=== PATIENT | male | born 1945 | race Hispanic/Latino ===

== ENCOUNTER 2017-08-10 09:18 | Inpatient (IN) | payer MEDICARE, OTHER ==
--- NOTE | 2017-08-10 10:19 | ED PDOC ---
Arrival/HPI - General Chief Complaint: Dizziness/Lightheaded Time Seen by Provider: 08/10/17 09:55 Historian: Patient, Spouse - History of Present Illness Narrative History of Present Illness (Text): 08/10/17 10:10 pt p/w + 5 days onset of intermittent "off-balanced" sensation; pt states 5 days ago when it first started, the symptoms only lasted for few min and pt continue to go about his daily chores; pt states yesterday upon awakening, "lightheadedness/off-balanced" sensation continued and lasted into today, prompted him to come to ED for further eval; pt states + at times having to hold onto bender when ambulating; pt states no fever/chills/sweats, no slurr speech, no vision changes, no neck pain, + mild occipital headache, no cp/sob/ palpitations, no abd pain, no n/v, no numbness/tingling, no arm/leg weakness, no rashes, no fall/trauma/sick contact, no traveling clerk denied other complaints pt has not seen PCP for awhile pcp: Dr Hicks pt is right hand dominate Time/Duration: < week (5 days) Symptom Onset: Sudden Symptom Course: Unchanged, Worsening Activities at Onset: Other (changing position worsens symptoms) Context: Home Past Medical History - Provider Review Nursing Documentation Reviewed: Yes - Travel History Have you recently traveled outside [place] w/in the past 3 mons?: No - Past History Past History: No Previous - Infectious Disease Hx of Infectious Diseases: None - HEENT Hx HEENT Disorder: Yes Hx Cataracts: Yes - Psychiatric Hx Psychophysiologic Disorder: No Hx Substance Use: No - Surgical History Hx Appendectomy: Yes Hx Cataract Extraction: Yes Family/Social History - Physician Review Nursing Documentation Reviewed: Yes Family/Social History: No Known Family HX Smoking Status: Current Some Days Smoker Hx Alcohol Use: No Hx Substance Use: No Hx Substance Use Treatment: No Allergies/Home Meds Allergies/Adverse Reactions: Allergies No Known Allergies Allergy (Verified 08/10/17 09:31) Home Medications: Home Meds Medication Instructions Recorded Confirmed Aspirin [Aspirin Chewable] 81 mg PO DAILY 08/10/17 08/10/17 Review of Systems - Review of Systems Constitutional: Normal Eyes: Normal ENT: Normal Respiratory: Normal Cardiovascular: Normal Gastrointestinal: Normal Genitourinary Male: Normal Musculoskeletal: Normal Skin: Normal Neurological: Headache, Dizziness, Disequilibrium Endocrine: Normal Hemo/Lymphatic: Normal Psychiatric: Normal Physical Exam Vital Signs Reviewed: Yes Vital Signs Temp Pulse Resp BP Pulse Ox 08/10/17 12:20 61 179/89 H 08/10/17 11:47 57 L 18 179/89 H 98 08/10/17 10:07 64 18 166/89 H 98 08/10/17 09:32 97.9 F 70 16 176/77 H 96 Temperature: Afebrile Blood Pressure: Normal Pulse: Regular Respiratory Rate: Normal Appearance: Positive for: Well-Appearing, Uncomfortable, Other (alert/awake, GCS = 15, oriented x 3 ) Pain Distress: None Mental Status: Positive for: Alert and Oriented X 3 - Systems Exam Head: Present: Atraumatic, Normocephalic Pupils: Present: PERRL Medical Decision Making ED Course and Treatment: 08/10/17 10:17 Impression: lightheadedness/off balance i have consider all the differential diagnosis regarding pt's chief medical complaints/clinical findings, including but are not limited to: lightheadedness/ off balance A/P: r/o basiliar stroke - labs - iv - xray - ct - observe - supportive care 08/10/17 12:05 pt felt some improvement, but still felt off balanced pt is made [place] of his medical results agrees with admission Dr Buchanan, pt's covering PCP, made aware, agrees with admission, would like to consult Dr Mcnair (neurology) Re-evaluation Time: 12:05 Reassessment Condition: Improving,but remains with symptoms - Critical Care Critical Care Minutes: 30 minutes Critical Care Time: Excluding Proc Time Narrative Critical Care (Text): 08/10/17 12:54 critical care time: 30min, excluding procedure time, excluding time teaching residents/students/mid-level providers; including initial eval/diagnosis, diagnostic interpretation, re-eval, consultations, final disposition - Lab Interpretations Lab Results: 08/10/17 10:28 08/10/17 11:10 Lab Results 08/10/17 11:30: Urine Color Yellow, Urine Appearance Clear, Urine pH 6.0, Ur Specific [place] 1.025, Urine Protein Negative, Urine Glucose (UA) Negative, Urine Ketones Negative, Urine Blood Negative, Urine Nitrate Negative, Urine Bilirubin Negative, Urine Urobilinogen 0.2, Ur Leukocyte Esterase Negative 08/10/17 11:10: TSH 3rd Generation 1.28 08/10/17 11:10: Sodium 142, Potassium 4.0, Chloride 112 H, Carbon Dioxide 21, Anion Gap 13, BUN 23 H, Creatinine 1.1, Est GFR ( Amer) > 60, Est GFR ( Non-Af Amer) > 60, Random Glucose 101, Calcium 9.3, Total Bilirubin 0.3, AST 35 , ALT 77 H, Alkaline Phosphatase 46, Troponin I < 0.01, Total Protein 6.3, Albumin 3.5, Globulin 2.8, Albumin/Globulin Ratio 1.2 08/10/17 10:28: PT 11.4, INR 0.99, APTT 25.1 08/10/17 10:28: WBC 8.2, RBC 4.65, Hgb 15.0, Hct 43.4, MCV 93.3, MCH 32.3, MCHC 34.6, RDW 13.1, Plt Count 243, MPV 11.4 H, Gran % 55.0, Lymph % (Auto) 31.1, [place] % (Auto) 10.3 H, Eos % (Auto) 3.2, Baso % (Auto) 0.4, Gran # 4.50, Lymph # (Auto) 2.5, [place] # (Auto) 0.8 H, Eos # (Auto) 0.3, Baso # (Auto) 0.03 I have reviewed the lab results: Yes Interpretation: All labs normal - RAD Interpretation Narrative RAD Interpretations (Text): 08/10/17 12:07 PROCEDURE: CT HEAD WITHOUT CONTRAST. HISTORY: persistent off balance COMPARISON: None available. TECHNIQUE: Axial computed tomography images were obtained through the head/brain without intravenous contrast. Radiation dose: Total exam DLP = 889 mGy-cm. This CT exam was performed using one or more of the following dose reduction techniques: Automated exposure control, adjustment of the mA and/or kV according to patient size, and/or use of iterative reconstruction technique. FINDINGS: HEMORRHAGE: No intracranial hemorrhage. BRAIN: No mass effect or edema. No atrophy or chronic microvascular ischemic changes. VENTRICLES: Unremarkable. No hydrocephalus. CALVARIUM: Unremarkable. PARANASAL SINUSES: Unremarkable as visualized. No significant inflammatory changes. MASTOID AIR CELLS: Unremarkable as visualized. No inflammatory changes. OTHER FINDINGS: None. IMPRESSION: No acute intracranial findings CXR - NAD Radiology Orders: 08/10/17 10:06 HEAD W/O CONTRAST [CT] Stat 08/10/17 10:07 CHEST PORTABLE [RAD] Stat 08/10/17 10:37 CT HEAD WITHOUT CONTRAST Creator : Florencio Hawk MD FINDINGS: HEMORRHAGE: No intracranial hemorrhage. BRAIN: No mass effect or edema. No atrophy or chronic microvascular ischemic changes. VENTRICLES: Unremarkable. No hydrocephalus. CALVARIUM: Unremarkable. PARANASAL SINUSES: Unremarkable as visualized. No significant inflammatory changes. MASTOID AIR CELLS: Unremarkable as visualized. No inflammatory changes. IMPRESSION: No acute intracranial findings. Front End Web Developer: Radiologist - EKG Interpretation EKG Interpretation (Text): 08/10/17 12:08 NSR at 60 bpm, normal axis, no ectopy, qs in leads III, inverted T in leads III , no st-t changes, borderline EKG; unchanged compare with old ekg 11/2015 Interpreted by ED Physician: Yes Type: 12 lead EKG Comparison: Similar to previous EKG - Medication Orders Current Medication Orders: Sodium Chloride (Sodium Chloride 0.9%) 1,000 mls @ 100 mls/hr IV .Q10H ARELY Last Admin: 08/10/17 10:44 Dose: 100 mls/hr eMAR Start Stop Document 08/10/17 10:44 [email or web address] (Rec: 08/10/17 10:44 CAST [id number]) Intravenous Solution Start Date 08/10/17 Start Time 10:44 End Date 08/10/17 Discontinued Medications Aspirin (Aspirin) 325 mg PO STAT STA Stop: 08/10/17 10:16 Last Admin: 08/10/17 10:44 Dose: 325 mg Hydralazine HCl (Apresoline) 10 mg IVP ONCE ONE Stop: 08/10/17 12:11 Last Admin: 08/10/17 12:20 Dose: 10 mg IVP Administration Document 08/10/17 12:20 [email or web address] (Rec: 08/10/17 12:[id number]) Charges for Administration # of IVP Administrations 1 MAR Pulse and Blood Pressure Document 08/10/17 12:20 [email or web address] (Rec: 08/10/17 12:[id number]) Pulse Pulse Rate (60-90) 61 Blood Pressure Blood Pressure (100/60-150/90) 179/89 Meclizine HCl (Antivert) 25 mg PO STAT STA Stop: 08/10/17 10:17 Last Admin: 08/10/17 10:44 Dose: 25 mg Metoclopramide HCl (Reglan) 10 mg IVP STAT STA Stop: 08/10/17 10:17 Last Admin: 08/10/17 10:44 Dose: 10 mg IVP Administration Document 08/10/17 10:44 [email or web address] (Rec: 08/10/17 10:44 [email or web address] [id number] [id number]) Charges for Administration # of IVP Administrations 1 Disposition/Present on Arrival - Present on Arrival Any Indicators Present on Arrival: No History of DVT/PE: No History of Uncontrolled Diabetes: No Urinary Catheter: No History of Decub. Ulcer: No History Surgical Site Infection Following: None - Disposition Have Diagnosis and Disposition been Completed?: Yes Diagnosis: Lightheadedness, Basilar insufficiency, Ataxia, Elevated blood pressure reading Disposition: HOSPITALIZED Disposition Time: 12:11 Patient Plan: Admission, Telemetry Patient Problems: Current Active Problems Problem Status Onset Lightheadedness Acute Condition: STABLE
--- NOTE | 2017-08-10 10:36 | CT ---
PROCEDURE: CT HEAD WITHOUT CONTRAST. HISTORY: persistent off balance COMPARISON: None available. TECHNIQUE: Axial computed tomography images were obtained through the head/brain without intravenous contrast. Radiation dose: Total exam DLP = 889 mGy-cm. This CT exam was performed using one or more of the following dose reduction techniques: Automated exposure control, adjustment of the mA and/or kV according to patient size, and/or use of iterative reconstruction technique. FINDINGS: HEMORRHAGE: No intracranial hemorrhage. BRAIN: No mass effect or edema. No atrophy or chronic microvascular ischemic changes. VENTRICLES: Unremarkable. No hydrocephalus. CALVARIUM: Unremarkable. PARANASAL SINUSES: Unremarkable as visualized. No significant inflammatory changes. MASTOID AIR CELLS: Unremarkable as visualized. No inflammatory changes. OTHER FINDINGS: None. IMPRESSION: No acute intracranial findings
[2017-08-10 10:43] LABS: BASO # 0.03 K/mm3 (0.0-2.0); BASO % 0.4 % (0.0-3.0); EOS # 0.3 (0.0-0.7); EOS % 3.2 % (1.5-5.0); GRAN # 4.5 (1.4-6.5); LYMPH # 2.5 (1.2-3.4); LYMPH % 31.1 % (22.0-35.0); MEAN CELL VOLUME 93.3 fl (80.0-105.0); MEAN CORPUSCULAR HEMOGLOBIN 32.3 pg (25.0-35.0); MEAN CORPUSCULAR HGB CONC 34.6 g/dl (31.0-37.0); MEAN PLATELET VOLUME 11.4 fl (7.0-11.0); MONO # 0.8 (0.1-0.6); MONO % 10.3 % (1.0-6.0); RBC 4.65 10^6/uL (3.5-6.1); RED CELL DISTRIBUTION WIDTH 13.1 % (11.5-14.5); WHITE BLOOD COUNT 8.2 10^3/ul (4.5-11.0)
[2017-08-10] MEDS: Sodium Chloride 0.9% 1,000 ML IV SCH ×2 (10:44→17:44)
[2017-08-10 11:12] LABS: INR 0.99 (0.93-1.08); PARTIAL THROMBOPLASTIN TIME 25.1 Seconds (25.1-36.5); PROTHROMBIN TIME 11.4 SECONDS (9.4-12.5)
[2017-08-10 11:32] LABS: ALB/GLOB RATIO 1.2 (1.1-1.8); ALBUMIN 3.5 g/dL (3.0-4.8); ALT/SGPT 77 U/L (7-56); AST/SGOT 35 U/L (17-59); BLOOD UREA NITROGEN 23 mg/dL (7-21); CALCIUM 9.3 mg/dL (8.4-10.5); GFR AFRICAN-AMERICAN > 60; GFR NON-AFRICAN AMERICAN > 60
[2017-08-10 11:44] LABS: TROPONIN I < 0.01 ng/mL
[2017-08-10 11:47] LABS: URINE APPEARANCE CLEAR (CLEAR); URINE BILIRUBIN NEGATIVE (NEGATIVE); URINE BLOOD NEGATIVE (NEGATIVE); URINE COLOR YELLOW (YELLOW); URINE GLUCOSE (UA) NEGATIVE (NEGATIVE); URINE LEUKOCYTE ESTERASE NEGATIVE Leu/uL (NEGATIVE); URINE PROTEIN NEGATIVE mg/dL (<30 mg/dL); URINE UROBILINOGEN 0.2 E.U./dL (<1 E.U./dL)
--- NOTE | 2017-08-10 12:30 | RAD ---
HISTORY: off balance COMPARISON: 12/12/2015 FINDINGS: LUNGS: No active pulmonary disease. PLEURA: No significant pleural effusion identified, no pneumothorax apparent. CARDIOVASCULAR: No radiographic findings to suggest acute or significant cardiovascular disease. OSSEOUS STRUCTURES: No significant abnormalities. VISUALIZED UPPER ABDOMEN: Normal. OTHER FINDINGS: None. IMPRESSION: No active disease. No significant interval change compared to the prior examination(s).
--- NOTE | 2017-08-10 14:00 | CARD ---
APPROVED REPORT EKG Measurement Heart [id number] AL [id number] <Conclusion> Normal sinus rhythm Normal ECG
[2017-08-10 17:46] VITALS: RESP 20
--- NOTE | 2017-08-10 18:12 | MRI ---
PROCEDURE: MRI BRAIN WITHOUT CONTRAST HISTORY: vertigo COMPARISON: Comparison is made to the previous CT dated 08/10/2017 TECHNIQUE: Multiplanar, multisequence MR images of the brain were obtained without intravenous contrast enhancement. FINDINGS: HEMORRHAGE: None DWI: No evidence of an acute or early subacute infarction. BRAIN PARENCHYMA: No mass effect or edema. Mild volume loss is noted. No evidence of significant white matter chronic microvascular ischemic changes. VENTRICLES: Unremarkable. No hydrocephalus. CRANIUM: Unremarkable. ORBITS: Grossly unremarkable. PARANASAL SINUSES/MASTOIDS: Clear VASCULAR SYSTEM: Skull base flow voids intact. OTHER FINDINGS: None. IMPRESSION: No evidence of acute infarction or acute pathology in the brain parenchyma. No evidence of mass lesion mass effect or midline shift. Mild volume loss.
[2017-08-10 18:13] VITALS: BMI 32.1
--- NOTE | 2017-08-11 00:54 | CON ---
DATE: HISTORY OF PRESENT ILLNESS: This is a 72-year-old white male, who came to the Emergency Room with the complaint of dizziness and lightheadedness, which started last Tuesday and symptoms lasted for few hours and then he went back to work on Tuesday, still felt again episode of lightheadedness and called the PMD, who brought him to the Emergency Room. is at bedside. No nausea, no vomiting. Dizziness occurs only with lightheadedness when patient stands up. No visual problem, no double vision. No numbness or tingling in the arms, legs, or face. PAST MEDICAL HISTORY: Not significant other than high blood pressure. ALLERGIES: NO KNOWN DRUG ALLERGY. MEDICATION: Aspirin only. REVIEW OF SYSTEMS: Ten-point review of systems. PHYSICAL EXAMINATION: VITAL SIGNS: Blood pressure 176/77. HEENT: Normocephalic, atraumatic. NECK: Supple. NEUROLOGIC: Awake, alert, and oriented x3. No aphasia. Cranial nerves II to XII were tested. Pupil reactive. EOM intact. Visual theodore full. No facial asymmetry. Tongue midline. Motor examination, moves all the extremities equally. Tone normal. Deep tendon reflexes 1+. Both plantars are downgoing. Sensory appears intact. Cerebellar and gait, deferred. LABORATORY DATA: WBC 8.2, hemoglobin 15, hematocrit 43.4, and platelets 243. Sodium 142, potassium 4, chloride 112, CO2 of 21, glucose 101, BUN 23, and creatinine 1.1. CAT scan of the head was done which was normal. No bleed. No stroke. IMPRESSION: Lightheadedness, possibly syncope, new-onset vertigo, rule out vertebrobasilar ischemia, benign positional vertigo. PLAN: We will order the MRI of the head and continue present management. We will follow up. Thong Mcnair MD
[2017-08-11 02:32] VITALS: O2SAT 97
[2017-08-11] MEDS: Sodium Chloride 0.9% 1,000 ML IV SCH ×2 (03:48→06:33)
[2017-08-11 11:38] LABS: ALB/GLOB RATIO 1.3 (1.1-1.8); ALBUMIN 3.7 g/dL (3.0-4.8); ALT/SGPT 68 U/L (7-56); AST/SGOT 36 U/L (17-59); BLOOD UREA NITROGEN 21 mg/dL (7-21); CALCIUM 9.2 mg/dL (8.4-10.5); GFR AFRICAN-AMERICAN > 60; GFR NON-AFRICAN AMERICAN 60
[2017-08-11 12:34] VITALS: BP 146/60; PULSE 59; TEMP 98.4
--- NOTE | 2017-08-13 01:46 | DS ---
DISCHARGE DIAGNOSES: 1. Ataxia. 2. Lightheadedness. 3. New-onset vertigo. HISTORY OF PRESENT ILLNESS: The patient was admitted with lightheadedness and vertigo, unsteady gait, MRI of the brain was unremarkable. He was evaluated by Dr. Mcnair, Neurology. Diagnosis of benign positional vertigo was made. He was treated with meclizine. No cardiac issues identified. He is being discharged in stable condition. PHYSICAL EXAMINATION ON DISCHARGE: GENERAL: Comfortable in bed, in no acute distress. VITAL SIGNS: Temperature 98.7, heart rate 80 per minute, blood pressure 120/70, respiratory rate 18 per minute, oxygen saturation 98% on room air. HEENT: Normal. CHEST: Air entry present and equal bilaterally. No added sounds. CARDIOVASCULAR: S1, S2 normal. No murmur. No gallop. ABDOMEN: Soft, nontender. No hepatosplenomegaly. EXTREMITY: No edema. CONDITION ON DISCHARGE: Stable. DISPOSITION: Discharge home. DISCHARGE MEDICATIONS: Antivert p.r.n. Continue home meds. FOLLOWUP: Follow up with Dr. Hicks in 1 week. Follow up with Dr. Mcnair in 1 week. Time spent in preparing discharge, coordinating care 50 minutes. Annika Nair MD
--- NOTE | 2017-08-13 02:14 | HP ---
DATE OF EXAM: 08/10/2017 HISTORY OF PRESENT ILLNESS: Mr. Morales is a 72-year-old male presented to the ED with unsteady gait. He was found to have high blood pressure. No chest pain. No shortness of breath. His gait, as per history, was getting worse for the past 5 days. He does not have a history of gait dysfunction before. PAST MEDICAL HISTORY: Cataract. PAST SURGICAL HISTORY: Appendectomy. SOCIAL HISTORY: Some-day smoker. Lives at home. FAMILY HISTORY: Noncontributory. ALLERGIES: NO KNOWN DRUG ALLERGIES. HOME MEDICATIONS: Aspirin 81 mg daily. REVIEW OF SYSTEMS: As per HPI. Rest of 12-point review of systems reviewed and negative. PHYSICAL EXAMINATION GENERAL: Comfortable, in bed, in no acute distress. VITAL SIGNS: Temperature 97.7, heart rate 70 per minute, respiratory rate 16 per minute, blood pressure 170/77, pulse ox is 96% on room air. HEENT: Normal. CHEST: Air entry present and equal bilaterally. No added sound. CARDIOVASCULAR: S1 and S2 normal. No murmur. No gallop. ABDOMEN: Soft, nontender. No hepatosplenomegaly. EXTREMITIES: No edema. CENTRAL NERVOUS SYSTEM: Unsteady gait. Cranial nerves intact. Awake, alert, oriented. SPINE: Nontender. LABORATORY DATA: White count 8.2, hemoglobin 15, hematocrit 43.4, platelet 243. Sodium 143, potassium 4, BUN 23, creatinine 1.1, glucose 101. AST 35, ALT 77, monocyte 0.8%. CT head, no intracranial hemorrhage. No acute changes. ASSESSMENT: 1. Ataxia. 2. Hypertension. 3. Monocytosis. PLAN: He will be admitted to the hospital, tele monitoring. Neurology consultation, Dr. Mcnair, requested. MRI of the brain ordered. He was given Antivert 25 mg stat, hydralazine for elevated blood pressure. We will continue aspirin 81 mg daily. IV fluid at mL an hour. Annika Nair MD
== END 2017-08-11 14:23 | disposition home or self-care (01) | DRG 149 ==
LOC: ED 09:18 → ERH 12:00 → 2RNO 17:09
PROVIDERS: ADMIT Internal Medicine Nephrology; ATTEND Internal Medicine Nephrology
DX: R42 Dizziness and giddiness (principal); R03.0 Elevated blood-pressure reading, without diagnosis of hypertension